=== PATIENT | male | born 1940 | race Caucasian/White ===

== ENCOUNTER 2019-07-11 15:17 | Inpatient (IN) | payer OTHER ==
[~2019-07-11] VITALS: Ht 177.8 cm; Wt 82.6 kg
--- NOTE | 2019-07-11 15:25 | NUR ---
Admit a 78 yo male from home, ambulatory with c/o right lower quadrant pain level 8-10 accompanied with nausea. Pt is awake, alert and oriented x 3. afebrile.
--- NOTE | 2019-07-11 15:30 | NUR ---
Seen and examined by Dr Espinosa with new orders.
[2019-07-11] MEDS ORDERED: ATOR20TA PO (15:38)
[2019-07-11] MEDS ORDERED: ALBU8.5H8 IH (15:38)
[2019-07-11] MEDS ORDERED: ASPI81TA31 PO (15:38)
[2019-07-11] MEDS ORDERED: TAMS-3 PO (15:38)
[2019-07-11] MEDS ORDERED: MECL12.582 PO (15:38)
[2019-07-11] MEDS ORDERED: DONE10TA44 PO (15:38)
[2019-07-11] MEDS ORDERED: TRAZ-182 PO (15:38)
[2019-07-11] MEDS ORDERED: PANT40TA4 PO (15:38)
[2019-07-11] MEDS ORDERED: MELO-105 PO (15:38)
[2019-07-11] MEDS ORDERED: SERT100T PO (15:38)
[2019-07-11] MEDS ORDERED: HYDROMORPHONE 1 MG/1 ML DISP.SYRIN ONE (15:44)
[2019-07-11] MEDS ORDERED: ONDANSETRON 4 MG/2 ML VIAL ONE (15:44)
[2019-07-11] MEDS ORDERED: HYDROMORPHONE 1 MG/1 ML DISP.SYRIN IV ONE (15:45)
[2019-07-11] MEDS ORDERED: IV NORMAL SALINE 1000 ML BAG IV ONE (15:45)
[2019-07-11] MEDS ORDERED: ONDANSETRON 4 MG/2 ML VIAL IV ONE (15:45)
[2019-07-11 15:49] LABS: BASOPHILS # (AUTO) 0.1 K/uL (0.0-8.0); BASOPHILS % (AUTO) 0.9 % (0.0-2.0); EOSINOPHILS # (AUTO) 0.8 K/uL (0.0-0.7); EOSINOPHILS % (AUTO) 11.5 % (0.0-7.0); HEMATOCRIT 43.4 % (36.7-47.1); HEMOGLOBIN 14.6 g/dL (12.5-16.3); LYMPHOCYTES # (AUTO) 1.7 K/uL (20.0-40.0); LYMPHOCYTES % (AUTO) 25.4 % (20.5-51.5); MEAN CORPUSCULAR HEMOGLOBIN 29.4 uug (23.8-33.4); MEAN CORPUSCULAR HGB CONC 34 g/dL (32.5-36.3); MEAN CORPUSCULAR VOLUME 87.5 fL (73.0-96.2); MONOCYTES # (AUTO) 0.3 K/uL (2.0-10.0); NEUTROPHILS # (AUTO) 3.9 K/uL (1.8-8.9); NEUTROPHILS % (AUTO) 58.2 % (38.5-71.5); PLATELET COUNT (AUTO) 158 K/uL (152-348); RED BLOOD CELL COUNT(AUTO) 4.96 MIL/uL (4.06-5.63); WHITE BLOOD COUNT (AUTO) 6.7 K/uL (3.6-10.2)
[2019-07-11 15:56] LABS: CREATININE 0.9 mg/dL (0.6-1.3); POTASSIUM 3.9 mmol/L (3.5-5.1)
--- NOTE | 2019-07-11 16:00 | NUR ---
Pt medicated with Dilaudid 1mg slow ivp for pain as ordered. Also medicated with Zofran 4mg slow IVP for c/o nausea. Main IVF 1 L infusing on the right fa g 20. Relieved of the pain.
[2019-07-11 16:01] LABS: BILIRUBIN,DIRECT 0.1 mg/dL (0.0-0.2); BILIRUBIN,TOTAL 0.5 mg/dL (0.2-1.0)
--- NOTE | 2019-07-11 16:40 | NUR ---
Pt is admitted to [facility] per MD. Dr Espniosa spoken to the admitting [facility] MD marketing production coordinator. Called in report to Amanda RAE, Pt assigned to rm [id number].
--- NOTE | 2019-07-11 17:30 | NUR ---
Pt is transferred to [id number] via [facility]. Condition is guarded.
[2019-07-11 17:51] LABS: *BILIRUBIN,URIN NEGATIVE (NEGATIVE); *BLOOD, URINE NEGATIVE (NEGATIVE); *CLARITY,URINE CLEAR (CLEAR); *COLOR,URINE YELLOW (YELLOW); *KETONES,URINE NEGATIVE (NEGATIVE); *UROBILINOGEN,URINE 0.2 E.U./dl (NORMAL); LEUKOCYTE ESTERASE ,URINE TRACE (NEGATIVE); NITRITE, URINE NEGATIVE (NEGATIVE); PH,URINE 6.5 (5.0-8.0); UGLUCOSE NEGATIVE (NEGATIVE)
[2019-07-11 17:57] LABS: RBC,URINE 0-3 /HPF (0-3)
[2019-07-11 17:58] LABS: MUCUS,URINE FEW /LPF (0-FEW); SQUAMOUS EPITHELIAL CELL,UR FEW /HPF (NONE SEEN)
--- NOTE | 2019-07-11 17:58 | NUR ---
admitted from home via er a 78 yo male with adm dx of pancreatitis wake alert and verbally resposive, no ss of distress, abdominal pain tolerable. routine admission assessment initiated md nurse practitioner hospitalist notified of admission
--- NOTE | 2019-07-11 19:10 | NUR ---
Received patient in bed awake. AO x 4. In no signs of acute distress. IV in right hand patent and in tact. Needs attended. Patient NPO at the moment. Safety precautions in place. Will continue to monitor.
[2019-07-11] MEDS ORDERED: ACETAMINOPHEN 325 MG TABLET PO PRN (19:45)
[2019-07-11] MEDS ORDERED: Z GUARD REMEDY PASTE 57 GM TUBE TOP PRN (19:45)
[2019-07-11] MEDS ORDERED: HYDROCODONE/APAP 5-325MG TABLET PO PRN (19:45)
[2019-07-11] MEDS ORDERED: MAGNESIUM HYDROXIDE 30 ML LIQUID UDC PO PRN (19:45)
[2019-07-11] MEDS ORDERED: ZOLPIDEM 5 MG TABLET PO PRN (19:45)
[2019-07-11] MEDS ORDERED: ONDANSETRON 4 MG/2 ML VIAL IV PRN (19:45)
[2019-07-11] MEDS ORDERED: TRAZODONE 50 MG TABLET PO PRN (19:45)
[2019-07-11 20:00] VITALS: BP 115/48
[2019-07-11] MEDS ORDERED: ALBUTEROL SULFATE 2.5 MG/3 ML NEBU NEB PRN (20:00)
[2019-07-11] MEDS ORDERED: DOCUSATE SODIUM 100 MG CAPSULE PO SCH (21:00)
[2019-07-11] MEDS ORDERED: ENOXAPARIN SODIUM 40 MG/0.4 ML DISP.SYRIN SQ SCH (21:00)
[2019-07-11] MEDS ORDERED: ATORVASTATIN 20 MG TABLET PO SCH (21:00)
[2019-07-11] MEDS ORDERED: TAMSULOSIN HCL 0.4 MG CAP.SR.24H PO SCH (21:00)
[2019-07-11] MEDS: IV D5 1/2 NS 1000 ML 1,000 ML IV PRN (22:24)
--- NOTE | 2019-07-11 22:30 | NUR ---
Obtained consent from patient. Assessed patient to be alert and oriented, aware of procedure. Dr. Son provided explanation of procedure to patient.
--- NOTE | 2019-07-11 23:00 | NUR ---
Pt. taken by nuclear medicine for gallbladder scan.
[2019-07-12 04:58] VITALS: BP 111/50
[2019-07-12 06:41] LABS: BASOPHILS # (AUTO) 0.1 K/uL (0.0-8.0); BASOPHILS % (AUTO) 0.8 % (0.0-2.0); EOSINOPHILS # (AUTO) 0.5 K/uL (0.0-0.7); EOSINOPHILS % (AUTO) 7.3 % (0.0-7.0); HEMATOCRIT 40.9 % (36.7-47.1); HEMOGLOBIN 14.1 g/dL (12.5-16.3); LYMPHOCYTES # (AUTO) 1.5 K/uL (20.0-40.0); LYMPHOCYTES % (AUTO) 22.4 % (20.5-51.5); MEAN CORPUSCULAR HGB CONC 34 g/dL (32.5-36.3); MEAN CORPUSCULAR VOLUME 87.2 fL (73.0-96.2); MONOCYTES # (AUTO) 0.3 K/uL (2.0-10.0); MONOCYTES % (AUTO) 4.8 % (0.0-11.0); NEUTROPHILS # (AUTO) 4.4 K/uL (1.8-8.9); NEUTROPHILS % (AUTO) 64.7 % (38.5-71.5); PLATELET COUNT (AUTO) 151 K/uL (152-348); RED BLOOD CELL COUNT(AUTO) 4.69 MIL/uL (4.06-5.63); WHITE BLOOD COUNT (AUTO) 6.8 K/uL (3.6-10.2)
--- NOTE | 2019-07-12 06:44 | NUR ---
Patient slept throughout the night. No acute change in patient condition. No complaints of pain or discomfort. D5 1/2 NS running at 125mL/ hr. Vitals within normal throughout shift. Comfort provided, needs attended. Will endorse accordingly.
[2019-07-12 07:17] LABS: CARBON DIOXIDE 29 mmol/L (21-32); CHLORIDE 104 mmol/L (98-107); CHOLESTEROL 124 mg/dL (<200); CREATININE 0.9 mg/dL (0.6-1.3); GLUCOSE 103 mg/dL (74-106); HDL CHOLESTEROL 27 mg/dL (40-60); MAGNESIUM 1.9 mg/dL (1.8-2.4); PHOSPHOROUS 3.3 mg/dL (2.5-4.9); POTASSIUM 3.7 mmol/L (3.5-5.1); TRIGLYCERIDES 77 MG/DL (30-150); UREA NITROGEN, BLOOD 12 mg/dL (7-18)
[2019-07-12 07:30] LABS: LIPASE 186 U/L (73-393)
[2019-07-12] MEDS: IV D5 1/2 NS 1000 ML 1,000 ML IV PRN (08:49)
[2019-07-12] MEDS ORDERED: ALBUTEROL SULFATE 8 GM HFA.AER.AD IH SCH (09:00)
[2019-07-12] MEDS ORDERED: MECLIZINE HCL 12.5 MG TABLET PO SCH (09:00)
[2019-07-12] MEDS ORDERED: ASPIRIN 81 MG TAB.CHEW PO SCH (09:00)
[2019-07-12] MEDS ORDERED: MELOXICAM 7.5 MG TABLET PO SCH (09:00)
[2019-07-12] MEDS ORDERED: PANTOPRAZOLE SODIUM 40 MG TABLET.DR PO SCH (09:00)
[2019-07-12] MEDS ORDERED: SERTRALINE HCL 100 MG TABLET PO SCH (09:00)
[2019-07-12] MEDS ORDERED: DONEPEZIL 10 MG TABLET PO SCH (09:00)
[2019-07-12 11:17] VITALS: BP 131/50
--- NOTE | 2019-07-12 16:07 | NUR ---
Pt. discharged home with [place]. All discharge paperwork signed, copied, and given to pt. Pt. understands discharge instructions and to follow up with pcp in 1 week. IV removed. Id band removed. Pt. to be wheeled downstairs by and myself.
== END 2019-07-12 15:10 | disposition home or self-care (01) | DRG 439 ==
LOC: ER 15:17 → MEDSURG3 17:47
PROVIDERS: ADMIT Hospitalist; ATTEND Hospitalist
DX: K85.90 Acute pancreatitis without necrosis or infection, unspecified (principal); J98.11 Atelectasis; K80.20 Calculus of gallbladder without cholecystitis without obstruction; E78.5 Hyperlipidemia, unspecified; K21.9 Gastro-esophageal reflux disease without esophagitis; F03.90 Unspecified dementia, unspecified severity, without behavioral disturbance, psychotic disturbance, mood disturbance, and anxiety; N40.0 Benign prostatic hyperplasia without lower urinary tract symptoms; F32.9 Major depressive disorder, single episode, unspecified; F17.210 Nicotine dependence, cigarettes, uncomplicated; F41.9 Anxiety disorder, unspecified; K57.30 Diverticulosis of large intestine without perforation or abscess without bleeding; I70.0 Atherosclerosis of aorta; R16.2 Hepatomegaly with splenomegaly, not elsewhere classified
CPT/HCPCS: 36415; 70030-TC; 71045; 78445; 83690; 83735; 84100; 84153; 85025; 85730; 87086; 93005; A4663; A9537; G0378; J1170; J1650; J2405; J3490; J7030; J8597